=== PATIENT | male | born 1980 | race Hispanic/Latino ===

== ENCOUNTER 2018-01-05 07:51 | Emergency (ER) | payer OTHER ==
[2018-01-05] MEDS ORDERED: ACETAMINOPHEN-CODEINE 300/30MG TAB ONE (08:08)
[2018-01-05] MEDS ORDERED: KETOROLAC TROMETHAMINE 30MG/ML ONE (08:08)
== END 2018-01-05 08:55 | disposition home or self-care (01) ==
LOC: EDH 07:51
DX: S66.811A Strain of other specified muscles, fascia and tendons at wrist and hand level, right hand, initial encounter (principal); M54.5 Low back pain; M25.532 Pain in left wrist; M25.531 Pain in right wrist; F10.10 Alcohol abuse, uncomplicated; Z72.0 Tobacco use; W18.39XA Other fall on same level, initial encounter; Y93.89 Activity, other specified; Y92.89 Other specified places as the place of occurrence of the external cause; Y99.8 Other external cause status
CPT/HCPCS: 29125; 73110 ×2; 73130 ×2; 96372; 99284; J1885

== ENCOUNTER 2018-01-26 21:57 | Emergency (ER) | payer OTHER ==
[2018-01-26] MEDS ORDERED: AMOXICILLIN/POTASSIUM CLAV 875-125 TABLET PO ONE (22:54)
== END 2018-01-26 23:44 | disposition home or self-care (01) ==
LOC: EDH 21:57
DX: S51.831A Puncture wound without foreign body of right forearm, initial encounter (principal); W54.0XXA Bitten by dog, initial encounter; Y93.89 Activity, other specified; Y92.89 Other specified places as the place of occurrence of the external cause; Y99.8 Other external cause status
CPT/HCPCS: 73090

== ENCOUNTER 2018-06-06 16:49 | Emergency (ER) | payer SELFPAY | END 2018-06-06 19:15 | disposition home or self-care (01) | LOC: EDH 16:49 | DX: S62.231A Other displaced fracture of base of first metacarpal bone, right hand, initial encounter for closed fracture (principal); F41.9 Anxiety disorder, unspecified; F31.9 Bipolar disorder, unspecified; X58.XXXA Exposure to other specified factors, initial encounter; Y93.89 Activity, other specified; Y92.89 Other specified places as the place of occurrence of the external cause; Y99.8 Other external cause status | CPT/HCPCS: 29125; 73130 ==

== ENCOUNTER 2020-05-21 17:30 | Emergency (ER) | payer OTHER | END 2020-05-21 19:02 | LOC: EDH 17:30 | DX: S61.200A Unspecified open wound of right index finger without damage to nail, initial encounter (principal); F41.9 Anxiety disorder, unspecified; F32.9 Major depressive disorder, single episode, unspecified; Z72.0 Tobacco use; Y93.G3 Activity, cooking and baking; Y93.89 Activity, other specified; Y92.89 Other specified places as the place of occurrence of the external cause; Y99.8 Other external cause status ==

== ENCOUNTER 2024-12-26 13:49 | Emergency (ER) | payer BC ==
[~2024-12-26] VITALS: Ht 162.6 cm; Wt 63.5 kg
[2024-12-26 13:58] VITALS: BP 131/88; PULSE 94; RESP 18; TEMP 98.6; O2SAT 98
--- NOTE | 2024-12-26 14:10 | NUR ---
Patient verbalized using roderick meth in combination with fentanyl for the last 5 days. Stated last time of use was yesterday evening.
--- NOTE | 2024-12-26 14:22 | NUR ---
Placed 18g on right forearm.
--- NOTE | 2024-12-26 14:29 | ERN ---
General Chief Complaint: Weakness Stated Complaint: FEELING WEAK, DEHYDRATED, FATIGUE Time Seen by MD: 13:50 Source: patient History of Present Illness Initial Comments Patient is a 44-year-old male coming in to be evaluated for multiple issues. Patient states that he passed out a couple of minutes before arriving here. He also states that he has been using crystal meth, fentanyl, Xanax and marijuana. Along with the syncopal episode patient states that he has been feeling very weak for the last couple of days. Allergies: Coded Allergies: No Known Drug Allergies (Unverified Allergy, Unknown, 12/26/24) Past Medical History Past Medical History: Anxiety, Bipolar, Depression Past Surgical History: None ROS Dictation CONSTITUTIONAL: No chills, no fever, weakness, no diaphoresis, malaise. HEAD/FACE: No signs of trauma. EENT: No eye pain, no blurred vision, no tearing, no double vision, no ear pain, no ear discharge, no nose pain, no nasal congestion, no throat pain, no throat swelling, no mouth pain. RESPIRATORY: No cough, no orthopnea, no SOB, no stridor, no wheezing. CARDIOVASCULAR: No chest pain, no edema, no palpitations, no syncope. GASTROINTESTINAL/ABDOMINAL: No abdominal pain, no constipation, no diarrhea, no nausea, no vomiting. GENITOURINARY: No abnormal discharge, no dysuria, no frequent urination, no hematuria. No complaints of pain in the genitals. MUSCULOSKELETAL: No back pain, no gout, no joint pain, no joint swelling, no muscle pain, no muscle stiffness, no neck pain. INTEGUMENTARY: No change in color, no change in hair/nails, no dryness, no lesion, no lumps, no rash. NEUROLOGICAL/PSYCH: No anxiety, not depressed, no emotional problem, no headache, no numbness, no pre-existing deficit, no history of seizures, no tremors, no weakness. HEMATOLOGIC/LYMPHATIC: Not anemic, no history of blood clots, no apparent bleeding, no bruising, glands not swollen. All Systems Negative, Except as Noted. Physical Exam Physical Exam Dictation VITAL SIGNS: Reviewed. GENERAL APPEARANCE: Alert, oriented x3, no acute distress, obese. HEAD AND FACE: Non-traumatic. EYES: PERRL, pink conjunctivas, eyelid no trauma, anterior chamber clear. EARS: Pinnas intact and no signs of trauma or erythema. Ear canals clear and no discharge. TMs no erythema. NOSE: No discharge, no bleeding. OROPHARYNX: Mouth normal, teeth no caries, tongue pink. Pharynx clear, no e rythema. Tonsils no exudates, no abscesses noted. Mucous membrane moist. NECK: Supple, non-tender, no thyromegaly, no masses, no JVD, no bruits. BREAST: Deferred. CHEST: No tenderness, no crepitus, no paradoxical movement, no retractions. LUNGS: Clear, well-ventilated, symmetric, no rales, no wheezing, no rhonchi, no stridor, good breath sounds bilaterally. HEART: Regular rate, regular rhythm, no murmur, no gallops. VASCULAR: No peripheral edema. ABDOMEN: Soft, positive bowel sounds, nondistended, no guarding, nontender, no rebound, no masses no hepatomegaly, no splenomegaly, no Landrum's sign, no hernias. RECTAL: Deferred. GENITAL: Deferred. NEUROLOGICAL: Normal speech, gross motor function intact, gross sensory function intact. MUSCULOSKELETAL: Neck nontender, full range of motion, back nontender, full range of motion. EXTREMITIES: Nontender, full range of motion. SKIN: Color pink, dry, no turgor, no rash, no lacerations, no abrasions, no contusions. LYMPHATICS: Deferred. Results Laboratory and Microbiology Lab and Micro Result Laboratory Tests Test 12/26/24 14:17 12/26/24 15:30 White Blood Count 8.6 K/uL (4.8-10.8) Red Blood Count 4.99 MIL/uL (4.50-6.20) Hemoglobin 13.8 g/dL (14.0-18.0) L Hematocrit 41.8 % (42-54) L Mean Corpuscular Volume 83.8 fL (79-99) Mean Corpuscular Hemoglobin 27.7 pg (27.0-33.0) Mean Corpuscular Hemoglobin Concent 33.0 g/dL (32.0-36.0) Red Cell Distribution Width 13.1 % (11.0-15.5) Platelet Count 281 K/uL (130-400) Mean Platelet Volume 10.8 fL (7.5-10.5) H Immature Granulocyte % (Auto) 0.2 % (0-1) Neutrophils (%) (Auto) 66.3 % (40.0-77.0) Lymphocytes (%) (Auto) 24.3 % (21.0-51.0) Monocytes (%) (Auto) 7.4 % (3.0-13.0) Eosinophils (%) (Auto) 1.2 % (0.0-8.0) Basophils (%) (Auto) 0.6 % (0.0-5.0) Neutrophils # (Auto) 5.7 K/uL (1.8-7.7) Lymphocytes # (Auto) 2.1 K/uL (1.0-4.8) Monocytes # (Auto) 0.6 K/uL (0.1-1.0) Eosinophils # (Auto) 0.10 K/uL (0.00-0.70) Basophils # (Auto) 0.05 K/uL (0.00-0.20) Absolute Immature Granulocyte (auto 0.02 K/uL (0-1) Nucleated Red Blood Cells 0.0 % (0.0-0.19) Sodium Level 137 mmol/L (136-145) Potassium Level 3.3 mmol/L (3.5-5.1) L Chloride Level 101 mmol/L (101-111) Carbon Dioxide Level 28 mmol/L (21-32) Blood Urea Nitrogen 20 mg/dL (7-18) H Creatinine 1.0 mg/dL (0.5-1.3) Glomerular Filtration Rate Calc 96 mL/min (>90) Random Glucose 122 mg/dL (70-105) H Total Calcium 8.8 mg/dL (8.5-10.1) Total Creatine Kinase 411 U/L (21-232) #*H Troponin I High Sensitivity 5 ng/L (4-75) Serum Alcohol < 3 mg/dL (0-10) Urine Color LIGHT-YELLOW (YELLOW) Urine Appearance CLEAR (CLEAR) Urine pH 5.5 (5.0-8.0) Urine Specific [place] 1.007 (1.001-1.031) Urine Protein NEGATIVE mg/dL (NEGATIVE) Urine Glucose (UA) NEGATIVE mg/dL (NEGATIVE) Urine Ketones NEGATIVE mg/dL (NEGATIVE) Urine Occult Blood NEGATIVE (NEGATIVE) Urine Nitrate NEGATIVE (NEGATIVE) Urine Bilirubin NEGATIVE mg/dL (NEGATIVE) Urine Urobilinogen 0.2 mg/dL (0.2-1.0) Urine Leukocyte Esterase NEGATIVE Patric/uL Urine Opiates Screen NEGATIVE (NEGATIVE) Urine Barbiturates Screen NEGATIVE (NEGATIVE) Urine Phencyclidine Screen NEGATIVE (NEGATIVE) Urine Amphetamines Screen POSITIVE (NEGATIVE) H Urine Benzodiazepines Screen POSITIVE (NEGATIVE) H Urine Cocaine Screen NEGATIVE (NEGATIVE) Urine Marijuana (THC) Screen POSITIVE (NEGATIVE) H Labs Reviewed?: Yes EKG/XRAY/US/CT/MRI EKG Comment 12/26/2024 time 2:37 p.m. Ventricular rate 71 Sinus rhythm [place] [address] wave elevation or depression MDM MDM: Differential diagnosis: Polysubstance abuse, dehydration, Rationale: Tests considered and ordered secondary to shared decision making include: labs, ECG and radiology Previous outside records reviewed: Old ER visits. Risk of complication and/or morbidity or mortality of patient management: None Medications-Per medication reconciliation Patient is a 44-year-old male coming in to be evaluated for multiple complaints. Patient has been very weak he does state that he has been using drugs. Labo ratory workup positive for multiple drugs. Patient was counseled drug avoidance. Patient was hydrated with IV fluids states he feels much better. Patient will be discharged in stable condition with a diagnosis of dehydration and near-syncope. The Watson Syncope rule identifies patients who cannot be considered low risk of adverse outcomes after a syncopal event. Criteria include: History of congestive heart failure Hematocrit <30% Abnormal EKG (New ECG change from any source, any non-sinus rhythm on EKG or monitoring) Symptoms of shortness of breath Systolic BP <90 mmHg at triage If any of these criteria are noted, patient cannot be considered "low risk" of a serious outcome. In this study, a serious outcome is defined as ", myocardial infarction, arrhythmia, pulmonary embolism, stroke, subarachnoid hemorrhage, significant hemorrhage, or any condition causing a return ED visit and hospitalization for a related event." While the original paper identified a 96% sensitivity and 62% specificity for serious outcome (with negative predictive value 99.2% and positive predictive value 24.8%), validation studies have reported inconsistent results. ED Course Orders Procedure Category Date Status Time Cbc With Differential LAB 12/26/24 Complete 14:26 Chest 1vw RAD 12/26/24 Resulted 14:26 12 Lead Ekg Tracing- EKG 12/26/24 Complete Technical 14:26 Lactated Ringers PHA 12/26/24 Complete 1000ml (Lactated 14:30 Creatine Kinase, Total LAB 12/26/24 Complete 14:26 Troponin I High LAB 12/26/24 Complete Sensitivity 14:26 Urinalysis Profile LAB 12/26/24 Complete 14:26 Basic Metabolic Panel LAB 12/26/24 Complete 14:26 Drug Screen Urine LAB 12/26/24 Complete 14:26 Alcohol, Blood LAB 12/26/24 Complete 14:26 Potassium Bicarb/Cit PHA 12/26/24 Logged Ac 25meq (K-Lyte Ta 17:00 Current Medications Medications (Trade) Dose Ordered Sig/Ermelinda Route PRN Reason Start Time Stop Time Status Last Admin Dose Admin Lactated Ringer's 1,000 ml @ 0 mls/hr ONCE ONCE IV 12/26/24 14:30 12/26/24 14:31 DC 12/26/24 14:35 Potassium Bicarbonate (K-Lyte Tablet Eff 25 Meq Tablet.eff) 50 meq ONCE ONCE PO 12/26/24 17:00 12/26/24 17:01 UNV Vital Signs Date Time Temp Pulse Resp B/P (MAP) Pulse Ox O2 Delivery O2 Flow Rate FiO2 12/26/24 13:58 98.6 94 18 131/88 98 Room Air* 0 21 12/26/24 13:54 98.6 94 18 131/88 98 Room Air 0 DX & DISP Disposition: Discharge Departure Impression: Primary Impression: Polysubstance abuse Additional Impression: Dehydration Condition: Stable Additional Instructions: FOLLOW-UP WITH PRIMARY CARE PROVIDER IN 1 TO 2 DAYS. TAKE MEDICATIONS DIRECTED HERE IN THE EMERGENCY ROOM. OKAY TO CONTINUE HOME MEDICATIONS UNLESS OTHERWISE DISCUSSED DURING YOUR VISIT IN THE EMERGENCY ROOM TODAY. RETURN TO YOUR NEAREST EMERGENCY ROOM IF SYMPTOMS WORSEN OR IF THERE IS NO IMPROVEMENT. CALL 911 IF YOU NEED IMMEDIATE ASSISTANCE. TAKE TYLENOL [id number] NEEDED AND IF NO CONTRAINDICATIONS ARE PRESENT. INCREASE ORAL HYDRATION. A WOUND CULTURE OR URINE CULTURE WAS ORDERED HERE IN THE EMERGENCY ROOM DEPARTMENT PLEASE FOLLOW-UP WITH PRIMARY CARE PROVIDER AND ADVISE THEM TO GET REPEAT PORTS FROM OUR FACILITY. IF YOU HAD ANY NATACHA WRAP/SPLINTS THAT WERE APPLIED HERE, PLEASE DO NOT REMOVE THEM UNTIL YOU SEE YOUR PRIMARY CARE OR SPECIALTY. Referrals: Referrals: SELF,REFERRAL (PCP) GREG POWELL MD Time of Disposition: 16:43 MARIANA WADSWORTH MD Dec 26, 2024 14:29
[2024-12-26] MEDS: LACTATED RINGERS 1000ML 1,000 ML IV ONE (14:35)
--- NOTE | 2024-12-26 14:40 | EKG ---
[facility] Test Date: 2024-12-26 Test Time: 14:37:57 Pat Name: VIANCA MATT Department: ED Room: Gender: Compliance And Control Analyst: [birth year] : 1980 Requested By: MARIANA WADSWORTH Order Number: [id number] Reading MD: Cachorro Bauer Measurements Intervals [place] Rate: 71 P: 20 IA: 168 QRS: 35 QRSD: 86 T: 53 QT: 390 QTc: 425 Interpretive Statements Sinus rhythm ST elev, probable normal early repol pattern No previous ECG available for comparison Electronically Signed On 12-27-2024 22:16:35 CDT by Cachorro Bauer Please click the below link to view image of tracing.
[2024-12-26 14:41] LABS: BASOPHILS # (AUTO) 0.05 K/uL (0.00-0.20); BASOPHILS % (AUTO) 0.6 % (0.0-5.0); EOSINOPHILS % (AUTO) 1.2 % (0.0-8.0); HEMATOCRIT 41.8 % (42-54); IMMATURE GRANULOCYTE ABSOLUTE 0.02 K/uL (0-1); LYMPHOCYTES # (AUTO) 2.1 K/uL (1.0-4.8); LYMPHOCYTES % (AUTO) 24.3 % (21.0-51.0); MEAN CORPUSCULAR HEMOGLOBIN 27.7 pg (27.0-33.0); MEAN CORPUSCULAR VOLUME 83.8 fL (79-99); MONOCYTES # (AUTO) 0.6 K/uL (0.1-1.0); MONOCYTES % (AUTO) 7.4 % (3.0-13.0); NEUTROPHILS # (AUTO) 5.7 K/uL (1.8-7.7); NEUTROPHILS % (AUTO) 66.3 % (40.0-77.0); PLATELET COUNT (AUTO) 281 K/uL (130-400); RED BLOOD CELL COUNT(AUTO) 4.99 MIL/uL (4.50-6.20); RED CELL DISTRIBUTION WIDTH 13.1 % (11.0-15.5); WHITE BLOOD COUNT (AUTO) 8.6 K/uL (4.8-10.8)
[2024-12-26 14:49] LABS: CARBON DIOXIDE 28 mmol/L (21-32); CHLORIDE 101 mmol/L (101-111); GLOMERULAR FILTR. RATE CALC 96 mL/min (>90); GLUCOSE,RANDOM 122 mg/dL (70-105); POTASSIUM 3.3 mmol/L (3.5-5.1); SODIUM SERUM 137 mmol/L (136-145); UREA NITROGEN, BLOOD 20 mg/dL (7-18)
--- NOTE | 2024-12-26 14:53 | HMCIMG ---
CHEST 1VW HISTORY: Chest pain COMPARISON: None FINDINGS: A frontal projection of the chest was obtained. No acute pulmonary infiltrates is seen. The heart is normal in size. Degenerative changes are seen. No evidence of aortic calcification is seen. IMPRESSION: 1. No acute pulmonary infiltrate is seen.
[2024-12-26 15:06] LABS: ALCOHOL, BLOOD < 3 mg/dL (0-10)
[2024-12-26 15:09] LABS: CREATINE KINASE, TOTAL 411 U/L (21-232)
[2024-12-26 16:05] LABS: APPEARANCE,URINE CLEAR (CLEAR); BILIRUBIN,URINE NEGATIVE (NEGATIVE); COLOR,URINE LIGHT-YELLOW (YELLOW); GLUCOSE, URINE (UA) NEGATIVE (NEGATIVE); KETONES,URINE NEGATIVE (NEGATIVE); LEUKOCYTE ESTERASE ,URINE NEGATIVE Leu/uL (NEGATIVE); NITRATE,URINE NEGATIVE (NEGATIVE); OCCULT BLOOD,URINE NEGATIVE (NEGATIVE); PH,URINE 5.5 (5.0-8.0); PROTEIN,URINE NEGATIVE (NEGATIVE); UROBILINOGEN,URINE 0.2 mg/dL (0.2-1.0)
[2024-12-26 16:07] LABS: ADD UA MICROSCOPIC NO
[2024-12-26 16:12] LABS: AMPHET/METH SCREEN,URINE POSITIVE (NEGATIVE); BARBITURATE SCREEN, URINE NEGATIVE (NEGATIVE); BENZODIAZEPINES SCREEN,URINE POSITIVE (NEGATIVE); CANNABINOID SCREEN,URINE POSITIVE (NEGATIVE); COCAINE SCREEN,URINE NEGATIVE (NEGATIVE); OPIATE SCREEN,URINE NEGATIVE (NEGATIVE); PHENCYCLIDINE SCREEN,URINE NEGATIVE (NEGATIVE)
[2024-12-26] MEDS: PoTASSium BIcarbonate/CIT AC 25 MEQ TABLET.EFF PO ONE (16:45)
== END 2024-12-26 17:00 | disposition home or self-care (01) ==
LOC: EDH 13:49
DX: F19.10 Other psychoactive substance abuse, uncomplicated (principal); E86.0 Dehydration; F31.9 Bipolar disorder, unspecified; F41.9 Anxiety disorder, unspecified
CPT/HCPCS: 99284; 96360; 71045; 82550; 84484; 80048; 80305; 85025; 36415; 93005; 81003; J7120